=== PATIENT | female | born 1990 | race Caucasian/White ===

== ENCOUNTER 2017-09-07 17:43 | Emergency (ER) | payer SELFPAY ==
[~2017-09-07] VITALS: Ht 167.6 cm; Wt 81.8 kg
[2017-09-07] MEDS ORDERED: CEPHALEXIN500 M1 PO (18:13)
[2017-09-07] MEDS ORDERED: WELLBUTRIN SR150 MG PO (18:43)
[2017-09-07] MEDS ORDERED: PROZAC10 MG PO (18:43)
[2017-09-07 18:44] VITALS: BP 143/80
== END 2017-09-07 18:44 | disposition home or self-care (01) | DRG 605 ==
LOC: ED 17:43
PROC: 0HQFXZZ Repair Right Hand Skin, External Approach (ICD-10-PCS; principal; 2017-09-07)
DX: S61.411A Laceration without foreign body of right hand, initial encounter (principal); W26.0XXA Contact with knife, initial encounter; Y93.89 Activity, other specified; Y92.009 Unspecified place in unspecified non-institutional (private) residence as the place of occurrence of the external cause